=== PATIENT | male | born 1955 | race Caucasian/White ===

== ENCOUNTER 2021-08-21 12:06 | Outpatient (REF) | payer OTHER, SELFPAY ==
--- NOTE | ~2021-08-21 | XR_ITS ---
EXAMINATION: XR knee LT 3V, XR knee RT 3V CLINICAL INFORMATION: Pain COMPARISON: None TECHNIQUE: 3 views of the bilateral knees XR/XR knee LT 3V FINDINGS/IMPRESSION: RIGHT KNEE: No acute fracture or dislocation. Advanced right compartmental degenerative changes of the knee worst involving the medial compartment where there is complete loss of joint space and tricompartmental osteophytes. There is valgus angulation of the knee. No joint effusion. Atherosclerotic vascular calcification. LEFT KNEE: No acute fracture or dislocation. Advanced right compartmental degenerative changes of the knee worst involving the medial compartment where there is complete loss of joint space and tricompartmental osteophytes. There is valgus angulation of the knee. No joint effusion. Atherosclerotic vascular calcification.
--- NOTE | ~2021-08-21 | XR_ITS ---
EXAMINATION: XR knee LT 3V, XR knee RT 3V CLINICAL INFORMATION: Pain COMPARISON: None TECHNIQUE: 3 views of the bilateral knees XR/XR knee RT 3V FINDINGS/IMPRESSION: RIGHT KNEE: No acute fracture or dislocation. Advanced right compartmental degenerative changes of the knee worst involving the medial compartment where there is complete loss of joint space and tricompartmental osteophytes. There is valgus angulation of the knee. No joint effusion. Atherosclerotic vascular calcification. LEFT KNEE: No acute fracture or dislocation. Advanced right compartmental degenerative changes of the knee worst involving the medial compartment where there is complete loss of joint space and tricompartmental osteophytes. There is valgus angulation of the knee. No joint effusion. Atherosclerotic vascular calcification.
[2021-08-21 13:42] LABS: MANUAL DIFF FLAG NO
[2021-08-21 13:45] LABS: Basophils Absolute Auto 0.1 X10*3/uL (0.0-0.2); Basophils Percent Auto 0.7 % (0-2); Eosinophils Absolute Auto 0.1 X10*3/uL (0.0-0.4); Eosinophils Percent Auto 0.7 % (0-4); Hematocrit 45.8 % (42.0-52.0); Hemoglobin 15.4 g/dl (14.0-18.0); Imm Gran Abs Auto 0.02 X10*3/uL (0.00-0.03); Imm Gran Pct Auto 0.3 % (0.0-0.4); Lymphocytes Absolute Auto 2.1 X10*3/uL (1.2-4.9); Lymphocytes Percent Auto 28.8 % (20-40); Mean Corpuscular HGB Conc 33.6 g/dl (31.0-36.0); Mean Corpuscular Hemoglobin 30.9 pg (27.0-33.0); Mean Corpuscular Volume 91.8 fL (80.0-98.0); Mean Platelet Volume 10.8 fL (9.4-12.4); Monocytes Absolute Auto 0.6 X10*3/uL (0.1-1.2); Monocytes Percent Auto 8.3 % (2-11); Neutrophils Absolute Auto 4.4 x10*3/uL (2.0-8.3); Neutrophils Percent Auto 61.2 % (45-73); Platelet Count 237 X10*3/uL (160-400); Red Blood Count 4.99 X10*6/uL (4.60-5.80); Red Cell Distribution Width 13.2 % (11.0-16.0); White Blood Count 7.1 X10*3/uL (4.8-10.8)
[2021-08-21 14:53] LABS: Alanine Aminotransferase 8 U/L (0-40); Anion Gap 16 (12-20); Aspartate Amino Transferase 21 U/L (5-37); Blood Urea Nitrogen 10 mg/dL (9-16); Calcium 10.2 mg/dL (8.4-10.2); Carbon Dioxide 27 mmol/L (22-29); Chloride 100 mmol/L (96-108); Cholesterol 209 mg/dL; Estimated Glomerular Filt Rate > 60; Glucose Fasting 78 mg/dL (60-99); HDL Cholesterol 43 mg/dL; LDL Cholesterol Calculated 152 mg/dl; Potassium 4.1 mmol/L (3.3-5.1); Sodium 139 mmol/L (135-145); Triglycerides 70 mg/dL
[2021-08-21 14:56] LABS: PSA,Total (Free>4and<10) 0.65 ng/mL (0.00-4.00); Vitamin D 25-OH Total 23.4 ng/mL (>30)
== END 2021-08-21 12:07 | disposition home or self-care (01) ==
LOC: HO.HMGCX 12:06
PROVIDERS: PCP Internal Medicine; Visit Provider Internal Medicine
DX: Z00.00 Encounter for general adult medical examination without abnormal findings (principal); M25.561 Pain in right knee; M25.562 Pain in left knee; H52.13 Myopia, bilateral; M17.10 Unilateral primary osteoarthritis, unspecified knee; Z85.828 Personal history of other malignant neoplasm of skin; Z12.5 Encounter for screening for malignant neoplasm of prostate
CPT/HCPCS: 36415; 73562; 80048; 80061; 82306; 84153; 84450; 84460; 85025

== ENCOUNTER → 2021-11-21 08:12 | Outpatient (BNVA) | payer OTHER, SELFPAY | PROVIDERS: PCP Internal Medicine; Visit Provider Orthopaedic Surgery | DX: Z13.89 Encounter for screening for other disorder (principal) ==

== ENCOUNTER 2023-05-11 14:05 | Outpatient (AMB) | payer OTHER, SELFPAY ==
--- NOTE | 2023-05-11 14:08 | MHC.OFFVIS ---
Intake Intake Visit Reasons: OV-B/L Knee OA discuss sx Intake Note: This is a 68 year old male who presents for bilateral knee OA. He would like to discuss surgery today. Allergies No Known Allergies Allergy (Verified 05/11/23 14:16) Medication List - Last Reconciled 05/11/23 by Morelia Monroy RN celecoxib (Celebrex) 200 mg PO DAILY diclofenac sodium 1% 2 grams topical QID PRN zolpidem 10 mg PO BEDTIME PRN HPI OV-B/L Knee OA discuss sx HPI Details Frederick is a 68 year old man with bilateral knee OA, who presents today to discuss surgery. He complains of pain with daily activity, worse with walking. He limps badly and cannot function without pain.. He is limited in his daily activities by his pain and poor gait, and wants to be more active. He has a long history of running when he was younger, but ~20 years ago severed his ACL in an accident and had to stop. He found some relief from Celebrex but not sufficient. Injections have only been minimally helpful. His R worse than left. [facility] Medical History Bilateral knee pain Colon cancer screening Degenerative joint disease of knee History of basal cell cancer Insomnia disorder Surgical History H/O arthroscopy of left knee Status post herniorrhaphy Family History Father Prostate cancer, Onset Age: 64 Mother Myocardial infarction, Onset Age: 57 Morbid obesity CVA (cerebral vascular accident), Onset Age: 57 Sister Lung cancer Social History Housing: House Patient Tobacco Use Status: Never used Tobacco e-Cigarette/Vaping Use: Never Used service: No Current occupational status: employed Review of Systems Const All systems reviewed & are unremarkable except as noted in HPI and below Physical Exam Const General: no acute distress, alert and awake Orientation/consciousness: patient oriented x3 HEENT Head: Yes normocephalic and Yes atraumatic Eyes EOM: EOMs intact bilaterally Resp Effort & Inspection: normal respiratory effort and able to speak in complete sentences Cardio Jugular venous distension: no JVD Skin General skin exam: turgor normal Rashes: no rashes Neuro General: patient oriented x3 Extrem Other: Bilateral Knees: Vatus thrust with gait bilaterally Medial joitn line TTP Psych Appearance: grossly normal Affect: normal affect Attitude: cooperative Results Reviewed Results Reviewed: I personally reviewed relevant radiographs. ?? Advanced compartmental degenerative changes of the knee worst involving the medial compartment where there is complete loss of joint space and tricompartmental osteophytes. Assessment & Plan Assessment & Plan (1) Osteoarthritis of right knee: Code(s): M17.11 - Unilateral primary osteoarthritis, right knee Plan: Severe bilateral knee OA. His right is more painful than his left. He has varus deformities and cannot ambulate comfortably at this point. He has failed injection, PT and NSAIDs and I recommend TKA. He would like to be able to walk comfortably and I thin this is reasonable. I explained the options to him. I discussed the risks benefits and alternatives including but not limited to the risk of pain, infection, stiffness, need for further surgery as well as potential medical complications such as blood clots, pulmonary embolism and cardiac complications. We will begin the pre operative clearance process. (2) Osteoarthritis of left knee: Code(s): M17.12 - Unilateral primary osteoarthritis, left knee Plan This is a 68 year old man with [ ] bilateral knee OA, with varus contractures. He has pain with daily activity, worse with [ ]. He is limited in his ADLs and wants to return to being active, but is unable due to his pain. I discussed his diagnosis and treatment options. I recommend [ ]. Coding Level of Care Code Est Pt Level 4 (97453) Diagnoses Osteoarthritis of right knee M17.11 Osteoarthritis of left knee M17.12
== END 2023-05-11 15:48 | disposition home or self-care (01) ==
PROVIDERS: Visit Provider Orthopaedic Surgery
DX: M17.0 Bilateral primary osteoarthritis of knee (principal)
CPT/HCPCS: 99214

== ENCOUNTER → 2023-05-11 14:05 | Outpatient (BNVA) | payer OTHER, SELFPAY | PROVIDERS: Visit Provider Orthopaedic Surgery ==

== ENCOUNTER → 2023-09-29 13:34 | Outpatient (BNVA) | payer OTHER, SELFPAY | PROVIDERS: PCP Internal Medicine; Visit Provider Orthopaedic Surgery ==

== ENCOUNTER → 2023-09-29 13:34 | Outpatient (BNVA) | payer OTHER, SELFPAY | PROVIDERS: PCP Internal Medicine; Visit Provider Orthopaedic Surgery ==

== ENCOUNTER 2024-01-12 06:08 | Outpatient (REF) | payer OTHER, SELFPAY ==
[2024-01-12 10:23] LABS: Hematocrit 40.2 % (42.0-52.0); Hemoglobin 13.9 g/dl (14.0-18.0)
[2024-01-12 11:11] LABS: Alanine Aminotransferase 21 U/L (0-40); Anion Gap 19 (12-20); Aspartate Amino Transferase 20 U/L (5-37); Blood Urea Nitrogen 13 mg/dL (9-16); Calcium 9.7 mg/dL (8.4-10.2); Carbon Dioxide 22 mmol/L (22-29); Chloride 104 mmol/L (96-108); Cholesterol 171 mg/dL (<200); Estimated Glomerular Filt Rate > 60; Glucose Fasting 60 mg/dL (60-99); HDL Cholesterol 36 mg/dL (>40); LDL Cholesterol Calculated 120 mg/dL (<100); Potassium 3.6 mmol/L (3.3-5.1); Sodium 141 mmol/L (135-145); Triglycerides 78 mg/dL (<150); Vitamin D 25-OH Total 63.1 ng/mL (>30)
[2024-01-12 11:12] LABS: PSA,Total (Free>4and<10) 0.81 ng/mL (0.00-4.00)
== END 2024-01-12 06:09 | disposition home or self-care (01) ==
LOC: HO.HMGCLDS 06:08
PROVIDERS: PCP Internal Medicine; Visit Provider Internal Medicine
DX: Z01.812 Encounter for preprocedural laboratory examination (principal); E78.00 Pure hypercholesterolemia, unspecified; E55.9 Vitamin D deficiency, unspecified; M17.10 Unilateral primary osteoarthritis, unspecified knee; G47.00 Insomnia, unspecified; Z12.5 Encounter for screening for malignant neoplasm of prostate
CPT/HCPCS: 36415; 80048; 80061; 82306; 84153; 84450; 84460; 85014; 85018

== ENCOUNTER 2024-01-21 10:43 | Outpatient (AMB) | payer OTHER, SELFPAY ==
--- NOTE | 2024-01-21 09:27 | A.OFFPC_ITS ---
Vital Signs 01/21/24 11:15 Height 6 ft 1 in Weight 229 lb BMI 30.2 BP 110/72 Blood Pressure Location Lt brachial Position Sitting Pulse 81 Pulse Source Pulse Oximeter Pulse Oximetry (%) 98 Oxygen Delivery Method Room Air Intake Visit Reasons: Annual PE - see comments Intake Note: Pt is here today for his PE: Colonoscopy [address] [place] Allergies No Known Allergies Allergy (Verified 01/21/24 11:43) Medication List - Last Reconciled 01/21/24 by Tia Ochoa MD celecoxib 200 mg PO DAILY cholecalciferol (vitamin D3) 125 mcg PO DAILY [id number]-jcy-zyras-[id number]-qvppxcy-xsmvzy [id number] mcg (Centrum Silver Men) 1 tab PO DAILY psyllium husk (Metamucil) 0.4 grams PO DAILY zolpidem 0.5 mg PO BEDTIME PRN Tobacco use date assessed: 01/21/24 Fall risk assessment: 2 + Falls in past year Last assessed Fall Risk: 01/21/24 Dental Screening Dental Screen Date: 01/21/24 Did you have a dental visit in the last 12 months?: No Was dental information given to patient?: No HPI Annual PE - see comments HPI Details 68-year-old male here today for physical exam. He states that he is up-to-date with his screening colonoscopy done by his previous PCP in [place] unable to recall when it was done however. He has arthritis in both knees, takes celecoxib as needed and has occasional insomnia for which he takes zolpidem 5 mg tab as needed PFSH Medical History (Updated 01/31/24 @ 22:56 by Tia Ochoa MD) Degenerative joint disease of knee Bilateral knee pain Insomnia disorder History of basal cell cancer Colon cancer screening Surgical History (Updated 01/31/24 @ 22:56 by Tia Ochoa MD) H/O arthroscopy of left knee Status post herniorrhaphy Family History Father Prostate cancer, Onset Age: 64 Mother Myocardial infarction, Onset Age: 57 Morbid obesity CVA (cerebral vascular accident), Onset Age: 57 Sister Lung cancer Social History Housing: House Patient Tobacco Use Status: Never used Tobacco e-Cigarette/Vaping Use: Never Used service: No Current occupational status: employed Cognitive needs: No Hearing needs: No Vision needs: Yes Questionnaire PHQ-9 Over the last 2 weeks, how often have you been bothered by any of the following problems? 1. Little interest or pleasure in doing things: several days 2. Feeling down, depressed, or hopeless: not at all 3. Trouble falling or staying asleep, or sleeping too much: more than half the days 4. Feeling tired or having little energy: several days 5. Poor appetite or overeating: not at all 6. Feeling bad about yourself - or that you are a failure or have let yourself or your family down: not at all 7. Trouble concentrating on things, such as reading the newspaper or watching television: not at all 8. Moving or speaking so slowly that other people could have noticed. Or the opposite - being so fidgety or restless that you have been moving around a lot more than usual: not at all 9. Thoughts that you would be better off or of hurting yourself in some way: not at all Total score: 4 Depression Screening Interpretation: Negative Depression Screening Done: Yes 29501 - PHQ-9 Billing: Yes Source: Developed by Drs. Jose Alejandro, Jolly Ashford, Jaime Woodson and colleagues, with an educational julio from [employer]. Thrive Questionnaire Date Thrive assessed: 01/21/24 I am a: Patient What is your living situation today?: I have a steady place to live Within the past 12 months, did the food you bought not last and you didn't have the money to get more?: Never true Within the past 12 months, did you worry whether your food would run out before you got money to buy more?: Never true Do you have trouble paying for medicines?: No Do you have trouble getting transportation to medical appointments?: No Do you have trouble paying your heating and electricity bill?: No Do you have trouble taking care of your child, family member or friend?: No Do you have trouble with day-to-day activities such as bathing, preparing meals, shopping, managing finances, etc.?: No Are you currently unemployed and looking for a job?: No Are you interested in more education?: No THRIVE Score: 0 AUDIT C Alcohol Use Questionnaire (AUDIT-C) 1. How often do you have a drink containing alcohol?: Monthly or less 2. How many drinks containing alcohol do you have on a typical day when you are drinking?: 3 or 4 3. How often do you have six or more drinks on one occasion?: Never Total Score: 2 CEDRIC-7 AMB Questionnaire CEDRIC-7 Date CEDRIC - 7 assessed: 01/21/24 Feeling nervous, anxious, or on edge: 0 = Not at all Not being able to stop or control worryin = Not at all Worrying too much about different things: 0 = Not at all Trouble relaxin = Not at all Being so restless that it is hard to sit still: 0 = Not at all Becoming easily annoyed or irritable: 0 = Not at all Feeling afraid as if something awful might happen: 0 = Not at all Total CEDRIC-7 score (0-4 normal; 5-9 mild; 10-14 moderate; 15-21 severe): 0 Source: Developed by Drs. Jose Alejandro, Jolly Ashford, Jaime Woodson and colleagues, with an educational julio from [employer]. CEDRIC-7 Assessment Billing CEDRIC-7 Assessment Tool: CEDRIC-7 Assessment 94089 Review of Systems Const Reports as per HPI, Denies fatigue, Denies headache(s) and Reports weight gain Eyes Details: sees Dr Ibarra , has cataracts Reports blurry vision ENT Denies headache(s) Card Reports no additional complaints Resp Reports no additional complaints GI Reports no additional complaints Reports no additional complaints Musc Reports arthralgias (knee pain with walking or standing) and Reports stiffness Skin/Breast Denies rash Neuro Denies headache(s) Psych Reports no additional complaints and Reports as per HPI Endo Denies fatigue Jayce/Lymph Reports no additional complaints Aller/Immun Reports no additional complaints Physical exam (Primary Care) Vital Signs: Last Vital Signs Pulse 81 06/27/24 11:15 BP 110/72 01/21/24 11:15 Pulse Ox 98 01/21/24 11:15 Oxygen Delivery Method Room Air 01/21/24 11:15 BMI result Body Mass Index 30.2 Tobacco/Smoking Status: Tobacco use Status Tobacco use date assessed 01/21/24 01/21/24 11:20 Patient Tobacco Use Status Never used Tobacco 01/21/24 09:27 e-Cigarette/Vaping Use Never Used 01/21/24 09:27 PHQ-9: PHQ-9 Score PHQ-9: Total score 4 01/21/24 12:02 Depression Screening Interpretation: Negative Thrive Assessment: Date of Thrive Assessment Date Thrive assessed 01/21/24 01/21/24 10:59 Const General: comfortable, no acute distress and alert Orientation/consciousness: patient oriented x3 HENMT Head: Yes normocephalic and Yes atraumatic Ears: hearing grossly normal bilaterally, TM's normal bilaterally and EAC's normal General nose exam: Normal external nose present Face and sinus: Yes face symmetric Mouth: Normal oral and palatal mucosa present and moist mucous membranes Eyes General: appearance normal, both eyes and all related structures Neck Other: Supple, no lymphadenopathy palpated, thyroid gland nonpalpable Neck: Yes no meningeal signs Resp Effort & Inspection: normal respiratory effort and able to speak in complete sentences Auscultation: clear to auscultation bilaterally Cardio Other: S1-S2 present regular rate and rhythm GI Inspection: Yes normal to inspection Palpation (GI): Soft to palpation, nontender, no guarding and no masses Auscultation: normal bowel sounds Male General Exam: Yes normal external exam Penis: normal penis and circumcised Meatus: meatus normal Scrotum: scrotum normal and no masses Testes: no testicular mass Back/Spine/Pelvis Back: No back tenderness Skin Other: Diffusely scattered hyper pigmented nevus on back Neuro General: patient oriented x3, gait normal, moves all extremities, Normal light touch and pain sensation, no meningeal signs, no focal motor deficits and CN's II-XI intact bilaterally Extrem Other: crepitus in both knees , tenderness on palpation mdial aspect left knee General: Yes full ROM, Yes no joint enlargement, Yes no calf tenderness and Yes normal gait Psych Appearance: grossly normal Mental Status: mental status grossly normal Speech and movement: Normal speech and movement present Affect: normal affect Attitude: cooperative Thought process: Normal thought process present Thought content: Normal thought content present Results Reviewed Results Reviewed: RUN: 01/21/24 1141 PAGE 1 [facility] [address] [place] [id number] Dispatch Machine Runner: Santy Myers M.D. Specimen Inquiry Name: KaylaFrederick Age/Sex: 68/M : 1955 Unit#: [id number] Attend Dr: Tia Ochoa MD Re01/12/24 Status: DEP [facility]F [facility] Disch: SPEC : [id number] CRISTOPHER: 01/12/24 STATUS: COMP REQ : [id number] RECD: 01/12/[address]: Tia Ochoa MD COMP: 01/12/24 ENTERED: 01/12/[address] [facility] DR: ORDERED: Met Prof Fast, AST, ALT, Lipid Panel, Vitamin D 25-OH Test Result Flag Reference Sodium 141 135-145 mmol/L Potassium 3.6 3.3-5.1 mmol/L CL 104 96-108 mmol/L CO2 22 22-29 mmol/L Gap 19 12-20 BUN 13 9-16 mg/dL Creat 0.90 0.5-1.4 mg/dL EGFR > 60 NOTE: For -[place] Citizen individuals, multiply the result by 1.210. Chronic Kidney Disease: Estimated GFR < 60 mL/min/1.73m2 Severe Kidney Disease: Estimated GFR < 15 mL/min/1.73m2 FBS 60 60-99 mg/dL CA 9.7 8.4-10.2 mg/dL AST (GOT) 20 5-37 U/L ALT (GPT) 21 0-40 U/L Triglyceride 78 <150 mg/dL Desirable Triglyceride: less than 150 mg/dL Borderline High Triglyceride 150-199 mg/dL High Triglyceride: 200-499 mg/dL Very High Triglyceride: greater than or equal to 5OO mg/dL Cholesterol 171 <200 mg/dL Desirable Cholesterol: less than 200 mg/dL Borderline High Cholesterol: 200-239 mg/dL High Cholesterol: greater than 239 mg/dL LDL Calculated 120 H <100 mg/dL Desirable LDL: less than 100 mg/dL Near Optimal/Above Optimal LDL: 110-129 mg/dL Borderline High LDL: 130-159 mg/dL High LDL: 160-189 mg/dL Very High LDL: greater than or equal to 190 mg/dL HDL 36 L >40 mg/dL Desirable HDL: greater than 40 mg/dL Note: This HDL assay may give artificially low results in patients with liver disease. Vit D 25-OH Tot 63.1 >30 ng/mL Health Based Reference Values* < 20 ng/mL Deficient 20-30 ng/mL Insufficient > 30 ng/mL Sufficient Laboratory Tests 01/12/24 06:37 Hgb 13.9 L Hct 40.2 L Assessment and Plan Assessment & Plan (1) Annual visit for general adult medical examination with abnormal findings: Code(s): Z00.01 - Encounter for general adult medical examination with abnormal findings Plan: Reviewed recent fasting lab results with patient.. Recommended dental visit every 6 months and regular eye exams, at least every 2 years. Take adequate calcium in diet and vitamin-D 3 at 2000 IU per cap once a day, in addition to weight-bearing exercises to help maintain good muscle tone and weight control. Instructed to do self-testicular exam check for any mass, referred to GI Clinic for his colon cancer screening. Up-to-date with all his vaccinations including his COVID vaccine and booster, RSV, shingles and pneumococcal vaccine (2) Colon cancer screening: Code(s): Z12.11 - Encounter for screening for malignant neoplasm of colon Plan: Referred to GI Clinic for colon cancer screening. (3) Degenerative joint disease of knee: Code(s): M17.10 - Unilateral primary osteoarthritis, unspecified knee Plan: Currently takes Celebrex as needed (4) Insomnia disorder: Code(s): G47.00 - Insomnia, unspecified Plan: Takes zolpidem 5 mg , as needed for insomnia Orders: Referrals Gastroenterology Referral Z12.11 - Encounter for screening for malignant neoplasm of colon Medications: New psyllium husk (Metamucil) 0.4 grams PO DAILY eo-fwi-idtuz-Y2-kbljfmz-uhytta [id number] mcg (Centrum Silver Men) 1 tab PO DAILY cholecalciferol (vitamin D3) 125 mcg PO DAILY Changed From zolpidem 10 mg PO BEDTIME PRN 7 tabs 0RF insomnia To zolpidem 0.5 mg PO BEDTIME PRN Coding Level of Care Code Est Pt Prev Care >65y(48610) Diagnoses Annual visit for general adult medical examination with abnormal findings Z00.01 Colon cancer screening Z12.11 Degenerative joint disease of knee M17.10 Insomnia disorder G47.00 Additional Codes CEDRIC-7 Assessment Billing - CEDRIC-7 Assessment Tool: CEDRIC-7 Assessment 07045 ([id number])
[2024-01-21 11:15] VITALS: BP 110/72; PULSE 81; O2SAT 98; BMI 30.2
== END 2024-01-21 12:05 | disposition home or self-care (01) ==
LOC: HO.HMGC 10:43
PROVIDERS: PCP Internal Medicine; Visit Provider Internal Medicine
DX: Z00.00 Encounter for general adult medical examination without abnormal findings (principal); G47.00 Insomnia, unspecified; M17.0 Bilateral primary osteoarthritis of knee; Z12.11 Encounter for screening for malignant neoplasm of colon
CPT/HCPCS: 99397

== ENCOUNTER 2024-03-23 09:40 | Outpatient (AMB) | payer OTHER, SELFPAY ==
--- NOTE | 2024-03-23 09:45 | A.OFFVIS_ITS ---
Vital Signs 3 03/23/24 09:49 Height 6 ft 1 in Weight 219 lb 2.232 oz BMI 28.9 BP 120/76 Blood Pressure Location Lt brachial Position Sitting Pulse 75 Intake Visit Reasons: Colonoscopy screening Intake Note: Frederick presents as a new patient for colonoscopy screening. CC: Patient last colonoscopy was in 2007 in [place] per patient he was found to have diverticulosis. Denies having any GI sympotoms today. Clerical Secretary Required: No Allergies No Known Allergies Allergy (Verified 01/21/24 11:43) HPI HPI Colonoscopy screening: Details: 69-year-old male here for preprocedural meeting to discuss a screening colonoscopy. He is referred by Tia Ochoa of [facility] primary care. PMX Obesity-BMI 31 History of basal cell carcinoma Osteoarthritis bilateral knees Insomnia * SURGICAL HISTORY Arthroscopy left knee Ventral hernia repair * ALLERGIES: NKDA * [facility] LABS: Laboratory Tests 01/12/24 06:37 Estimated GFR > 60 AST 20 ALT 21 Triglycerides 78 TODAY'S VISIT He had a prior scope in about [address] and he was told he only had TICS. NO bowel or upper GI problems. Denies any problems with anesthesia or sedation. No ID problems. He denies any cardiac or respiratory problems. NO FHX crc or polyps. [facility] Medical History Degenerative joint disease of knee Bilateral knee pain Insomnia disorder History of basal cell cancer Colon cancer screening Surgical History H/O colonoscopy H/O arthroscopy of left knee Status post herniorrhaphy Family History Father Prostate cancer, Onset Age: 64 Mother Myocardial infarction, Onset Age: 57 Morbid obesity CVA (cerebral vascular accident), Onset Age: 57 Sister Lung cancer Social History Housing: House Patient Tobacco Use Status: Never used Tobacco e-Cigarette/Vaping Use: Never Used service: No Current occupational status: employed Cognitive needs: No Hearing needs: No Vision needs: Yes Review of Systems Const Denies fatigue, Denies fever(s), Denies night sweats, Denies poor appetite and Denies weight loss ENT Reports Normal hearing present, Denies dental pain, Denies dysphagia, Denies hearing loss, Denies mouth pain, Denies odynophagia, Denies throat swelling, Denies tongue swelling and Reports other (Dentition adequate) Card Reports no additional complaints Resp Reports no additional complaints GI Details: Denies abdominal pain, Denies melena, Denies bloating, Denies hematochezia, Denies constipation, Denies GI cramping, Denies dysphagia, Denies excessive flatus, Denies early satiety, Denies heartburn, Denies diarrhea, Denies nausea, Denies odynophagia, Denies vomiting and Denies hematemesis Skin/Breast Denies pruritus, Denies lesions, Denies rash and Denies jaundice Neuro Reports Normal hearing present and Denies Abnormal speech present Endo Denies fatigue Aller/Immun Denies throat swelling and Denies tongue swelling Physical Exam Vital Signs: Last Vital Signs Pulse 75 03/23/24 09:49 BP 120/76 03/23/24 09:49 BMI result Body Mass Index 28.9 Const General: cooperative, no acute distress, well developed and well groomed Nutritional Appearance: well nourished and obese Orientation/consciousness: oriented to person, oriented to place and oriented to time Limitations: No language barrier and ambulation with cane HEENT Head: Yes normocephalic and Yes atraumatic Eyes General: appearance normal, both eyes and all related structures Pupils: Equal, round and reactive pupils present Neck Neck: Yes normal visual inspection and Yes no lymphadenopathy Thyroid: Thyroid normal Resp Effort & Inspection: normal respiratory effort and able to speak in complete sentences Auscultation: clear to auscultation bilaterally Cardio Rate: regular rate Rhythm: regular rhythm Heart sounds: Normal, physiologic split S2 sound present Peripheral pulses: radial pulses present and posterior tibial pulses present GI Inspection: No distended, Yes Abdominal panniculus present, Yes obesity and Yes scar Palpation (GI): Soft to palpation, nontender, no guarding, not rigid and No hepatosplenomegaly present Percussion: Yes normal to percussion Auscultation: normal bowel sounds Rectal Exam - Male: Yes deferred Abdomen image: 2 1. surgical scar 2. mild incisional hernia Skin General skin exam: no rashes or lesions noted, turgor normal, skin not dry, no jaundice, No spider nevi and no striae Rashes: no rashes Nails: normal Neuro General: oriented to person, oriented to place and oriented to time Cranial nerves: Yes Equal, round and reactive pupils present and Yes Normal hearing present Speech: No Abnormal speech present Extrem General: Yes normal to inspection, No clubbing, No cyanosis and Yes edema (mild of LE mild pitting) Psych Appearance: grossly normal and well kempt Mental Status: mental status grossly normal Speech and movement: Normal speech and movement present Affect: normal affect Attitude: cooperative Thought process: Normal thought process present and not confabulating Thought content: Normal thought content present Insight: Fair insight present (Psych) Judgement: Fair judgement present (Psych) Assessment & Plan Assessment & Plan (1) Pre-op examination: Code(s): Z01.818 - Encounter for other preprocedural examination Category: Medical Plan He had a prior scope [place] [address] and he was told he only had TICS. NO bowel or upper GI problems. Denies any problems with anesthesia or sedation. No ID problems. He denies any cardiac or respiratory problems. NO FHX crc or polyps. Orders: Orders 2 Colonoscopy - GI Use Only Today Z01.818 - Encounter for other preprocedural examination Medications: New 2 sod sulf-pot chloride-mag sulf 1.479-0.188- 0.225 gram (Sutab) PO PER PKG DIR for colonoscopy prep 24 tabs 0RF Coding Level of Care Code New Pt Level 3 (17190) Diagnoses Pre-op examination Z01.818
[2024-03-23 09:49] VITALS: BP 120/76; PULSE 75; BMI 28.9
== END 2024-03-23 10:29 | disposition home or self-care (01) ==
PROVIDERS: PCP Internal Medicine; Visit Provider Nurse Practitioner
DX: Z01.818 Encounter for other preprocedural examination (principal)
CPT/HCPCS: 99203; 99213

== ENCOUNTER → 2024-03-23 09:40 | Outpatient (BNVA) | payer OTHER, SELFPAY | PROVIDERS: PCP Internal Medicine; Visit Provider Nurse Practitioner ==